=== PATIENT | female | born 1985 | race Caucasian/White ===

== ENCOUNTER 2025-06-14 08:46 | Outpatient (AMB) | payer OTHER, SELFPAY ==
--- NOTE | 2025-06-14 08:54 | A.OFFPC_ITS ---
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 Transferring care from Dr Riley ([facility]). Medical records have been requested and have received. Multi Line Claims Adjuster Required: No Nps: Not Required per policy Accompanied by: Self / Same As Patient Allergies No Known Allergies (No Known Allergies*) Allergy (Verified 06/14/25 08:55) Medication List - Last Reconciled 06/14/25 by Chon Ruiz MD No Known Home Meds Tobacco use date assessed: 06/14/25 Dental Screening Dental Screen Date: 06/14/25 Did you have a dental visit in the last 12 months?: No Did you have a dental problem in the last 6 months where you did not have access to dental care?: No Was dental information given to patient?: Patient has dentist HPI HPI Comments History of Present Illness Details The patient is a 40 year old female with PMH of menorrhagia, headaches, presenting to [facility] with a chief complaint of abnormal vaginal bleeding. Her menstrual cycle changed last year in December, when it slowed down completely and she was without a period for months, followed by spotting for 2-3 days. Since February of this year, she has been bleeding almost continuously, with only one or two days of cessation at a time before it returns. She describes the bleeding as severe at times and is currently experiencing heavy bleeding. She has an contraceptive implant in her arm, which she has had for two 5- year terms and needs to have removed. She has a history of occasional migraines, which she treats with over -the-counter Excedrin. She reports her mood is sometimes low, which she attributes to her current health concerns and feeling tired. The patient's past medical history is negative for high blood pressure, high cholesterol, diabetes, and thyroid problems. She has no history of surgeries. Her family history is significant for cancer in an uncle (stomach or kidney) and diabetes in her grandmother and father. She does not smoke tobacco but uses marijuana occasionally. She is up to date on her [employer]-19 vaccines but is due for a tetanus shot, with her last one recorded in 2014. [facility] Surgical History (Updated 06/14/25 @ 09:05 by VIOLET Smith) No pertinent past surgical history Family History (Updated 06/14/25 @ 09:15 by Chon Ruiz MD) Father Diabetes Social History (Updated 06/14/25 @ 09:05 by VIOLET Smith) Housing: Apartment Alcohol intake: never Patient Tobacco Use Status: Never used Tobacco e-Cigarette/Vaping Use: Never Used Second Hand Smoke Exposure: No Substance Use Type: Marijuana service: No Current occupational status: employed Current occupation: Retail Cognitive needs: No Hearing needs: No Vision needs: Yes (Glasses/Contacts) Questionnaire PHQ-9 Over the last 2 weeks, how often have you been bothered by any of the following problems? 1. Little interest or pleasure in doing things: not at all 2. Feeling down, depressed, or hopeless: several days 3. Trouble falling or staying asleep, or sleeping too much: several days 4. Feeling tired or having little energy: several days 5. Poor appetite or overeating: not at all 6. Feeling bad about yourself - or that you are a failure or have let yourself or your family down: several days 7. Trouble concentrating on things, such as reading the newspaper or watching television: not at all 8. Moving or speaking so slowly that other people could have noticed. Or the opposite - being so fidgety or restless that you have been moving around a lot more than usual: not at all 9. Thoughts that you would be better off or of hurting yourself in some way: not at all Total score: 4 Depression Screening Interpretation: Positive Depression Screening Follow-up: Declines treatment Depression Screening Done: Yes Source: Developed by Drs. Nnamdi Kelly, Rona Kaur, Joshua Joy and colleagues, with an educational jeancarlos from [employer]. Thrive Questionnaire Date Thrive assessed: 06/14/25 I am a: Patient What is your living situation today?: I have a steady place to live Within the past 12 months, did the food you bought not last and you didn't have the money to get more?: Never true Within the past 12 months, did you worry whether your food would run out before you got money to buy more?: Never true Do you have trouble paying for medicines?: I choose not to answer this question Do you have trouble getting transportation to medical appointments?: Yes Do you have trouble paying your heating and electricity bill?: No Do you have trouble taking care of your child, family member or friend?: No Do you have trouble with day-to-day activities such as bathing, preparing meals, shopping, managing finances, etc.?: No Are you currently unemployed and looking for a job?: No Are you interested in more education?: No Please select the resources that you would like help with: Paying for medicine and Transportation Currently or been in a relationship where the following occur: No concerns reported THRIVE Score: 1 AUDIT C Alcohol Use Questionnaire (AUDIT-C) 1. How often do you have a drink containing alcohol?: Monthly or less 2. How many drinks containing alcohol do you have on a typical day when you are drinking?: 1 or 2 3. How often do you have six or more drinks on one occasion?: Less than monthly Total Score: 2 OMEGA-7 AMB Questionnaire OMEGA-7 Date OMEGA - 7 assessed: 06/14/25 Feeling nervous, anxious, or on edge: 1 = Several days Not being able to stop or control worryin = Several days Worrying too much about different things: 1 = Several days Trouble relaxin = Several days Being so restless that it is hard to sit still: 1 = Several days Becoming easily annoyed or irritable: 0 = Not at all Feeling afraid as if something awful might happen: 1 = Several days Total OMEGA-7 score (0-4 normal; 5-9 mild; 10-14 moderate; 15-21 severe): 6 Source: Developed by Drs. Nnamdi Kelly, Rona Kaur, Joshua Joy and colleagues, with an educational jeancarlos from [employer]. Review of Systems Const Details: Positives besides what was mentioned in HPI are in BOLD Constitutional: No Weight Change, No Fever, No Chills, No Night Sweats, No Fatigue, No Malaise ENT/Mouth: No Hearing Changes, No Ear Pain, No Nasal Congestion, No Sinus Pain, No Hoarseness, No sore throat, No Rhinorrhea, No Swallowing Difficulty Eyes: No Eye Pain, No Swelling, No Redness, No Foreign Body, No Discharge, No Vision Changes Cardiovascular: No Chest Pain, No SOB, No PND, No Dyspnea on Exertion, No Orthopnea, No Claudication, No Edema, No Palpitations Respiratory: No Cough, No Sputum, No Wheezing, No Smoke Exposure, No Dyspnea Gastrointestinal: No Nausea, No Vomiting, No Diarrhea, No Constipation, No Pain, No Heartburn, No Anorexia, No Dysphagia, No Hematochezia, No Melena, No Flatulence, No Jaundice Genitourinary: No Dysmenorrhea, No DUB, No Dyspareunia, No Dysuria, No Urinary Frequency, No Hematuria, No Urinary Incontinence, No Urgency, No Flank Pain, No Urinary Flow Changes, No Hesitancy Musculoskeletal: No Arthralgias, No Myalgias, No Joint Swelling, No Joint Stiffness, No Back Pain, No Neck Pain, No Injury History Skin: No Skin Lesions, No Pruritis, No Hair Changes, No Breast/Skin Changes, No Nipple Discharge Neuro: No Weakness, No Numbness, No Paresthesias, No Loss of Consciousness, No Syncope, No Dizziness, No Headache, No Coordination Changes, No Recent Falls Psych: No Anxiety/Panic, No Depression, No Insomnia, No Personality Changes, No Delusions, No Rumination, No SI/HI/AH/VH, No Social Issues, No Memory Changes, No Violence/Abuse Hx., No Eating Concerns Heme/Lymph: No Bruising, No Bleeding, No Transfusions History, No Lymphadenopathy Endocrine: No Polyuria, No Polydipsia, No Temperature Intolerance Physical exam (Primary Care) Vital Signs: Last Vital Signs Temp 96.9 F 06/14/25 08:56 Pulse 69 06/14/25 08:56 BP 122/68 06/14/25 08:56 Pulse Ox 99 06/14/25 08:56 Oxygen Delivery Method Room Air 06/14/25 08:56 BMI result Body Mass Index 24.2 Tobacco/Smoking Status: Tobacco use Status Tobacco use date assessed 06/14/25 06/14/25 09:03 Patient Tobacco Use Status Never used Tobacco 06/14/25 09:05 e-Cigarette/Vaping Use Never Used 06/14/25 09:05 PHQ-9: PHQ-9 Score PHQ-9: Total score 4 06/14/25 09:03 Depression Screening Interpretation: Positive Depression Screening Follow-up: Declines treatment Thrive Assessment: Date of Thrive Assessment Date Thrive assessed 06/14/25 06/14/25 09:03 Currently or been in a relationship where the following occur: No concerns reported Const Other: Pertinent findings are in BOLD GENERAL APPEARANCE NAD, activity normal for age, well developed/ well nourished, no cyanosis, pallor, or diaphoresis. EYES lids/conjunctiva normal. EARS/NOSE/THROAT Mucous membranes moist, nares normal, lips/teeth normal uvula midline without oral pharyngeal erythema, exudate or swelling TMs normal bilaterally. No lymphangitis/lymphedema. HEAD/NECK normocephalic atraumatic, no facial trauma, neck is supple. RESPIRATORY respiratory effort normal, speaks in full sentences, no tripod position, no accessory muscle use. Lungs clear to auscultation without rhonchi, wheezes, rales CARDIAC Regular rate and rhythm, no edema. ABDOMINAL Soft, ND/NT. No evidence of fluid wave. No pulsatile masses on exam, rebound tenderness, Anderson sign or pain over Mcburney's point. MUSCLES/EXTREMITIES No abnormal range of motion, no swelling. SKIN Warm, pink and dry. No rashes, dermatoses, petechiae or lesions. NEUROLOGICAL Speech is clear and appropriate. Normal level of consciousness. Gait and coordination are normal. 5/5 strength in all extremities. PSYCH Normal mood and affect. Judgement/competence is appropriate Coding Level of Care Code New Pt Level 4 (15194) Diagnoses Menorrhagia with irregular cycle N92.1 Menorrhagia type: with irregular cycle Healthcare maintenance Z00.00 Time Spent (min) 30 Assessment & Plan Assessment & Plan (1) Menorrhagia: Code(s): N92.0 - Excessive and frequent menstruation with regular cycle Category: Medical Qualifiers: Menorrhagia type: with irregular cycle Qualified Code(s): N92.1 - Excessive and frequent menstruation with irregular cycle Plan: - A stat referral will be placed to SECURITY RESEARCHER for evaluation of abnormal bleeding and removal of the contraceptive implant. - We will check CBC and iron panel. (2) Healthcare maintenance: Code(s): Z00.00 - Encounter for general adult medical examination without abnormal findings Category: Medical Plan: CBC, CMP, Lipid panel, A1C, TSH w T4. Ordered. Shingles 2 doses when >50 yo. At 50. COVID: two doses. Completed. Td: Today. Pneumococcal: >50 yo. 18-49 with CKD, lung disease, weakened immune system, Heart disease, DM, cochlear implant. Flu vaccine: Declined. Colonoscopy: 45-75. At 45. AAA: 65 -75. NI. CT lun - 80. NI. HPV: Referred to golf player assistant. HIV: Ordered. HCV: Ordered. Dexa: At 65. Mammogram: At 40. Plan I discussed with the patient that her main issue is the heavy menstrual bleeding, and we will address this with a stat referral to an SECURITY RESEARCHER. I explained that the SECURITY RESEARCHER will also be able to evaluate if her contraceptive implant is contributing to her menstrual cycle changes and can remove it. We ordered comprehensive lab work, including an iron level check due to the prolonged bleeding, and recommended she get the labs done fasting. I recommended and she consented to a tetanus shot today as she is due. I advised her to contact our office if she does not hear from the SECURITY RESEARCHER practice by the end of next week. A follow-up visit is scheduled in four months. Orders: Orders Lipid Panel Today Z00.00 - Encounter for general adult medical examination without abnormal findings TSH reflex Free T4 Today Z00.00 - Encounter for general adult medical examination without abnormal findings Vitamin B12 and Folate Today D64.9 - Anemia, unspecified, Z00.00 - Encounter for general adult medical examination without abnormal findings Complete Blood Count no Diff Today Z00.00 - Encounter for general adult medical examination without abnormal findings Comprehensive Met. Panel Today Z00.00 - Encounter for general adult medical examination without abnormal findings Ferritin Today Z00.00 - Encounter for general adult medical examination without abnormal findings IRON PROFILE Today Z00.00 - Encounter for general adult medical examination without abnormal findings HIV Ab/Ag Today Z00.00 - Encounter for general adult medical examination without abnormal findings Hepatitis C Antibody Reflex Today Z00.00 - Encounter for general adult medical examination without abnormal findings Hemoglobin A1c Today Z00.00 - Encounter for general adult medical examination without abnormal findings Referrals SECURITY RESEARCHER Referral N92.0 - Excessive and frequent menstruation with regular cycle
[2025-06-14 08:56] VITALS: BP 122/68; PULSE 69; TEMP 36.1; O2SAT 99; BMI 24.2
== END 2025-06-14 09:34 | disposition home or self-care (01) ==
LOC: HO.HMCH 08:47
PROVIDERS: PCP Internal Medicine; Visit Provider Internal Medicine
DX: N92.1 Excessive and frequent menstruation with irregular cycle (principal); Z00.00 Encounter for general adult medical examination without abnormal findings; Z23 Encounter for immunization

== ENCOUNTER → 2025-06-14 08:46 | Outpatient (BNVA) | payer OTHER, SELFPAY | PROVIDERS: PCP Internal Medicine; Visit Provider Internal Medicine | DX: Z76.89 Persons encountering health services in other specified circumstances (principal); N92.1 Excessive and frequent menstruation with irregular cycle; Z13.31 Encounter for screening for depression; Z13.39 Encounter for screening examination for other mental health and behavioral disorders; Z23 Encounter for immunization | CPT/HCPCS: 90471; 90715; 96127; 99202 ==